=== PATIENT | female | born 1955 | race Caucasian/White ===

== ENCOUNTER 2018-10-10 14:30 | Inpatient (IN) | payer BC, OTHER ==
[~2018-10-10] VITALS: Ht 170.2 cm; Wt 93.5 kg
[2018-10-10 22:00] VITALS: BP 148/71
[2018-10-10] MEDS ORDERED: LORazepam 2MG/ML-1ML VIAL IV PRN (22:15)
[2018-10-10] MEDS ORDERED: LORazepam 0.5 MG TAB PO PRN (22:15)
[2018-10-10] MEDS: MORPHINE SULF INJ 2 MG/ML SYRINGE 1ML IV PRN (22:44)
[2018-10-10] MEDS: GABAPENTIN 300 MG CAP PO SCH (22:45)
[2018-10-10] MEDS: AMITRIPTYLINE HCL 25 MG TAB PO SCH (22:45)
[2018-10-10] MEDS: DOCUSATE SOD 100 MG CAP PO PRN (22:45)
[2018-10-10] MEDS: FAMOTIDINE 20 MG TAB PO SCH (22:45)
[2018-10-10] MEDS: PHENYTOIN SODIUM 100 MG CAP PO SCH (22:45)
[2018-10-11] MEDS: MORPHINE SULF INJ 2 MG/ML SYRINGE 1ML IV PRN ×5 (05:17→20:14)
[2018-10-11 06:03] VITALS: BP 157/69
[2018-10-11] MEDS: GABAPENTIN 300 MG CAP PO SCH ×3 (06:05→20:55)
[2018-10-11 06:39] LABS: Basophils # (auto) 0.1 uL; Basophils % (auto) 1.1 % (0.0-2.0); Eosinophils # (auto) 0.3 uL; Eosinophils % (auto) 3.4 % (0.0-7.0); Hematocrit 29.5 % (36.0-46.0); Lymphocytes # (auto) 2.3 uL; Lymphocytes % (auto) 23.2 % (10.0-50.0); Mean Corpuscular Hemoglobin 30.9 pg (28.0-32.0); Mean Corpuscular Volume 90.8 fL (80.0-100.0); Monocytes # (auto) 1.1 uL; Monocytes % (auto) 11.7 % (0.0-12.0); Neutrophils # (auto) 5.9 uL; Neutrophils % (auto) 60.6 % (37.0-80.0); Platelet Count (auto) 298 10^3/uL (140-450); Red Blood Cells 3.25 10^6/uL (4.0-5.20); Red Cell Distribution Width 13.6 % (11.8-14.3); White Blood Cell 9.8 10^3/uL (4.4-10.8)
[2018-10-11 06:56] LABS: Calcium 8.3 mg/dL (8.5-10.1); INR 0.95 (0.9-1.15); Partial Thromboplastin Time 27.3 sec (23.64-32.05); Potassium 3.3 mmol/L (3.5-5.1)
[2018-10-11 08:00] VITALS: BP 155/67
[2018-10-11 09:00] VITALS: BP 155/67
[2018-10-11] MEDS: FAMOTIDINE 20 MG TAB PO SCH ×2 (09:17→20:55)
[2018-10-11] MEDS: PHENYTOIN SODIUM 100 MG CAP PO SCH ×2 (10:01→20:55)
[2018-10-11] MEDS: HYDROcodone-ACET 5/325MG TAB PO PRN (12:32)
[2018-10-11 13:00] VITALS: BP 164/74
[2018-10-11] MEDS ORDERED: POTASSIUM CHL 20 Meq TABLET PO ONE (13:00)
[2018-10-11] MEDS: METHOCARBAMOL 500 MG TAB PO SCH ×2 (13:16→20:55)
[2018-10-11 16:49] VITALS: BP 158/75
[2018-10-11] MEDS: AMITRIPTYLINE HCL 25 MG TAB PO SCH (20:55)
[2018-10-11 21:30] VITALS: BP 153/77
[2018-10-11] MEDS: TEMAZEPAM 15 MG CAP PO PRN (23:41)
[2018-10-12 05:00] VITALS: BP 149/78
[2018-10-12] MEDS: MORPHINE SULF INJ 2 MG/ML SYRINGE 1ML IV PRN ×5 (05:13→20:41)
[2018-10-12] MEDS: METHOCARBAMOL 500 MG TAB PO SCH ×3 (06:25→22:08)
[2018-10-12] MEDS: GABAPENTIN 300 MG CAP PO SCH ×3 (06:25→22:09)
[2018-10-12 08:00] VITALS: BP 155/80
[2018-10-12] MEDS: PHENYTOIN SODIUM 100 MG CAP PO SCH ×2 (10:27→22:09)
[2018-10-12] MEDS: DOCUSATE SOD 100 MG CAP PO PRN (10:28)
[2018-10-12] MEDS: HYDROcodone-ACET 5/325MG TAB PO PRN ×2 (10:28→14:55)
[2018-10-12] MEDS: FAMOTIDINE 20 MG TAB PO SCH ×2 (10:28→22:09)
[2018-10-12 12:00] VITALS: BP 135/75
[2018-10-12 17:00] VITALS: BP 140/73
[2018-10-12 22:00] VITALS: BP 155/79
[2018-10-12] MEDS: AMITRIPTYLINE HCL 25 MG TAB PO SCH (22:08)
[2018-10-12] MEDS: TEMAZEPAM 15 MG CAP PO PRN (23:10)
[2018-10-13] MEDS: MORPHINE SULF INJ 2 MG/ML SYRINGE 1ML IV PRN ×5 (04:05→20:59)
[2018-10-13 05:00] VITALS: BP 156/74
[2018-10-13] MEDS ORDERED: CIPROFLOXACIN HCL 500 MG TAB PO SCH (06:00)
[2018-10-13] MEDS: GABAPENTIN 300 MG CAP PO SCH ×3 (06:07→22:34)
[2018-10-13] MEDS: METHOCARBAMOL 500 MG TAB PO SCH ×3 (06:08→22:34)
[2018-10-13 08:00] VITALS: BP 138/69
[2018-10-13] MEDS: FAMOTIDINE 20 MG TAB PO SCH ×2 (10:18→22:34)
[2018-10-13] MEDS: PHENYTOIN SODIUM 100 MG CAP PO SCH ×2 (10:18→22:34)
[2018-10-13] MEDS: HYDROcodone-ACET 5/325MG TAB PO PRN (10:19)
[2018-10-13 12:30] VITALS: BP 125/77
[2018-10-13 17:00] VITALS: BP 138/69
[2018-10-13] MEDS ORDERED: CIPROFLOXACIN HCL 500 MG TAB PO ONE (17:45)
[2018-10-13] MEDS ORDERED: BISACODYL 10 MG RECT SUPP PR ONE (18:30)
[2018-10-13] MEDS ORDERED: LACTULOSE 20Gm/30ML SOLN PO ONE (18:30)
[2018-10-13] MEDS: DOCUSATE SOD 100 MG CAP PO SCH (18:40)
[2018-10-13] MEDS: HYDROcodone-ACET 7.5/325MG TAB PO SCH (18:42)
[2018-10-13 19:00] LABS: Urine Bacteria MANY /hpf (None Seen); Urine Blood 3+ /uL (Negative); Urine Mucus FEW (None Seen); Urine Specific Gravity 1.024 (1.001-1.035); Urine WBC 99 /hpf (0 - 5)
[2018-10-13 22:00] VITALS: BP 122/78
[2018-10-13] MEDS: AMITRIPTYLINE HCL 25 MG TAB PO SCH (22:34)
[2018-10-14] MEDS: LACTULOSE 20Gm/30ML SOLN PO SCH ×4 (00:26→17:19)
[2018-10-14] MEDS: MORPHINE SULF INJ 2 MG/ML SYRINGE 1ML IV PRN ×5 (01:45→21:02)
[2018-10-14 05:10] VITALS: BP 142/85
[2018-10-14] MEDS: GABAPENTIN 300 MG CAP PO SCH ×3 (06:28→22:30)
[2018-10-14] MEDS: CIPROFLOXACIN HCL 500 MG TAB PO SCH ×2 (06:28→17:19)
[2018-10-14] MEDS: HYDROcodone-ACET 7.5/325MG TAB PO SCH ×4 (06:29→18:49)
[2018-10-14] MEDS: METHOCARBAMOL 500 MG TAB PO SCH ×3 (06:29→22:37)
[2018-10-14 09:00] VITALS: BP 159/76
[2018-10-14] MEDS: DOCUSATE SOD 100 MG CAP PO SCH ×2 (10:40→22:30)
[2018-10-14] MEDS: FAMOTIDINE 20 MG TAB PO SCH ×2 (10:40→22:30)
[2018-10-14] MEDS: PHENYTOIN SODIUM 100 MG CAP PO SCH ×2 (10:41→22:30)
[2018-10-14 13:00] VITALS: BP 136/74
[2018-10-14 17:00] VITALS: BP 148/73
[2018-10-14 22:00] VITALS: BP 142/63
[2018-10-14] MEDS: AMITRIPTYLINE HCL 25 MG TAB PO SCH (22:30)
[2018-10-14] MEDS: TEMAZEPAM 15 MG CAP PO PRN (22:37)
[2018-10-15] MEDS: HYDROcodone-ACET 7.5/325MG TAB PO SCH ×4 (00:05→18:06)
[2018-10-15 04:49] VITALS: BP 142/68
[2018-10-15] MEDS: MORPHINE SULF INJ 2 MG/ML SYRINGE 1ML IV PRN ×3 (05:13→20:52)
[2018-10-15 05:59] LABS: Basophils # (auto) 0.1 uL; Eosinophils # (auto) 0.4 uL; Eosinophils % (auto) 4.8 % (0.0-7.0); Hematocrit 32.5 % (36.0-46.0); Hemoglobin 11.2 g/dL (12.2-16.2); Lymphocytes % (auto) 13.5 % (10.0-50.0); Mean Corpuscular Hemoglobin 31.3 pg (28.0-32.0); Mean Corpuscular Hgb Conc. 34.6 g/dL (32.0-36.0); Mean Corpuscular Volume 90.6 fL (80.0-100.0); Monocytes # (auto) 1.2 uL; Neutrophils # (auto) 4.6 uL; Neutrophils % (auto) 63.7 % (37.0-80.0); Platelet Count (auto) 352 10^3/uL (140-450); Red Blood Cells 3.59 10^6/uL (4.0-5.20); Red Cell Distribution Width 13.9 % (11.8-14.3); White Blood Cell 7.3 10^3/uL (4.4-10.8)
[2018-10-15] MEDS: LACTULOSE 20Gm/30ML SOLN PO SCH ×4 (06:00→17:53)
[2018-10-15] MEDS: CIPROFLOXACIN HCL 500 MG TAB PO SCH ×2 (06:25→18:05)
[2018-10-15] MEDS: METHOCARBAMOL 500 MG TAB PO SCH ×3 (06:26→22:26)
[2018-10-15] MEDS: GABAPENTIN 300 MG CAP PO SCH ×3 (06:26→22:26)
[2018-10-15 09:15] VITALS: BP 126/59
[2018-10-15] MEDS: PHENYTOIN SODIUM 100 MG CAP PO SCH ×2 (10:15→22:26)
[2018-10-15] MEDS: FAMOTIDINE 20 MG TAB PO SCH ×2 (10:15→22:26)
[2018-10-15] MEDS: DOCUSATE SOD 100 MG CAP PO SCH ×2 (10:15→22:26)
[2018-10-15 12:30] VITALS: BP 148/77
[2018-10-15 17:19] VITALS: BP 120/67
[2018-10-15 22:00] VITALS: BP 132/65
[2018-10-15] MEDS: TEMAZEPAM 15 MG CAP PO PRN (22:26)
[2018-10-15] MEDS: AMITRIPTYLINE HCL 25 MG TAB PO SCH (22:26)
[2018-10-16] MEDS: HYDROcodone-ACET 7.5/325MG TAB PO SCH ×4 (00:26→18:04)
[2018-10-16 05:00] VITALS: BP 132/71
[2018-10-16] MEDS: LACTULOSE 20Gm/30ML SOLN PO SCH ×4 (06:00→18:04)
[2018-10-16] MEDS: CIPROFLOXACIN HCL 500 MG TAB PO SCH ×2 (06:13→18:04)
[2018-10-16] MEDS: GABAPENTIN 300 MG CAP PO SCH ×3 (06:13→22:34)
[2018-10-16] MEDS: METHOCARBAMOL 500 MG TAB PO SCH ×3 (06:14→22:34)
[2018-10-16 07:28] LABS: Calcium 8.4 mg/dL (8.5-10.1); Potassium 4.1 mmol/L (3.5-5.1)
[2018-10-16 07:30] LABS: BUN/Creatinine Ratio 24.5
[2018-10-16 09:00] VITALS: BP 126/61
[2018-10-16 09:35] LABS: Hematocrit 35.3 % (36.0-46.0); Hemoglobin 11.7 g/dL (12.2-16.2); Mean Corpuscular Hemoglobin 30.7 pg (28.0-32.0); Mean Corpuscular Hgb Conc. 33.1 g/dL (32.0-36.0); Mean Corpuscular Volume 92.7 fL (80.0-100.0); Platelet Count (auto) 368 10^3/uL (140-450); Red Blood Cells 3.81 10^6/uL (4.0-5.20); Red Cell Distribution Width 14.5 % (11.8-14.3)
[2018-10-16 09:38] LABS: Basophils % (manual) 0 (0.0-2.0); Blast Cells 0; Metamyelocytes % 0; Myelocytes % 0; Promyelocytes % 0; Reactive Lymphocytes 0
[2018-10-16] MEDS: FAMOTIDINE 20 MG TAB PO SCH ×2 (09:58→22:34)
[2018-10-16] MEDS: PHENYTOIN SODIUM 100 MG CAP PO SCH ×2 (09:58→22:34)
[2018-10-16] MEDS: DOCUSATE SOD 100 MG CAP PO SCH ×2 (09:58→22:00)
[2018-10-16] MEDS: MORPHINE SULF INJ 2 MG/ML SYRINGE 1ML IV PRN ×2 (09:59→20:29)
[2018-10-16 11:08] LABS: Band Neutrophils % (manual) 1; Eosinophils % (manual) 1 (0-7); Lymphocytes % (manual) 18 (10.0-50.0); Monocytes % (manual) 16 (0-12)
[2018-10-16 13:00] VITALS: BP 117/72
[2018-10-16 17:26] VITALS: BP 122/61
[2018-10-16 22:07] VITALS: BP 116/73
[2018-10-16] MEDS: AMITRIPTYLINE HCL 25 MG TAB PO SCH (22:34)
[2018-10-16] MEDS: TEMAZEPAM 15 MG CAP PO PRN (22:35)
[2018-10-17] MEDS: HYDROcodone-ACET 7.5/325MG TAB PO SCH ×3 (00:18→13:39)
[2018-10-17 05:00] VITALS: BP 124/62
[2018-10-17] MEDS: MORPHINE SULF INJ 2 MG/ML SYRINGE 1ML IV PRN ×3 (05:15→16:56)
[2018-10-17] MEDS: LACTULOSE 20Gm/30ML SOLN PO SCH ×3 (06:00→11:17)
[2018-10-17] MEDS: CIPROFLOXACIN HCL 500 MG TAB PO SCH ×2 (06:05→16:55)
[2018-10-17] MEDS: GABAPENTIN 300 MG CAP PO SCH ×3 (06:06→21:16)
[2018-10-17] MEDS: METHOCARBAMOL 500 MG TAB PO SCH ×3 (06:07→21:15)
[2018-10-17] MEDS: PHENYTOIN SODIUM 100 MG CAP PO SCH ×2 (08:43→21:15)
[2018-10-17] MEDS: DOCUSATE SOD 100 MG CAP PO SCH (08:43)
[2018-10-17] MEDS: FAMOTIDINE 20 MG TAB PO SCH (08:43)
[2018-10-17 09:00] VITALS: BP 109/69
[2018-10-17 13:00] VITALS: BP 149/77
[2018-10-17 17:00] VITALS: BP 128/66
[2018-10-17] MEDS: HYDROcodone-ACET 7.5/325MG TAB PO PRN (19:11)
[2018-10-17] MEDS: TEMAZEPAM 15 MG CAP PO PRN (21:16)
[2018-10-17] MEDS: AMITRIPTYLINE HCL 25 MG TAB PO SCH (21:16)
[2018-10-17 22:00] VITALS: BP 121/63
[2018-10-18] MEDS: MORPHINE SULF INJ 2 MG/ML SYRINGE 1ML IV PRN ×2 (01:24→11:10)
[2018-10-18 05:00] VITALS: BP 140/75
[2018-10-18] MEDS: CIPROFLOXACIN HCL 500 MG TAB PO SCH ×2 (06:00→17:50)
[2018-10-18] MEDS: GABAPENTIN 300 MG CAP PO SCH ×3 (06:00→21:34)
[2018-10-18] MEDS: HYDROcodone-ACET 7.5/325MG TAB PO PRN ×3 (06:01→20:35)
[2018-10-18] MEDS: METHOCARBAMOL 500 MG TAB PO SCH ×3 (06:01→21:39)
[2018-10-18 09:00] VITALS: BP 134/73
[2018-10-18] MEDS: PHENYTOIN SODIUM 100 MG CAP PO SCH ×2 (10:45→21:34)
[2018-10-18] MEDS: FAMOTIDINE 20 MG TAB PO SCH (10:46)
[2018-10-18 12:59] VITALS: BP 133/67
[2018-10-18 14:45] LABS: Urine Bacteria FEW /hpf (None Seen); Urine Blood 1+ /uL (Negative); Urine Specific Gravity 1.015 (1.001-1.035); Urine WBC 8 /hpf (0 - 5)
[2018-10-18 16:57] VITALS: BP 130/54
[2018-10-18] MEDS: AMITRIPTYLINE HCL 25 MG TAB PO SCH (21:34)
[2018-10-18] MEDS: TEMAZEPAM 15 MG CAP PO PRN (21:39)
[2018-10-18] MEDS: DOCUSATE SOD 100 MG CAP PO PRN (21:45)
[2018-10-18 22:00] VITALS: BP 119/60
[2018-10-19] MEDS: MORPHINE SULF INJ 2 MG/ML SYRINGE 1ML IV PRN (01:57)
[2018-10-19 04:38] VITALS: BP 123/70
[2018-10-19] MEDS: LORazepam 0.5 MG TAB PO PRN (05:19)
[2018-10-19] MEDS: GABAPENTIN 300 MG CAP PO SCH ×3 (05:30→22:16)
[2018-10-19] MEDS: CIPROFLOXACIN HCL 500 MG TAB PO SCH ×2 (05:30→17:48)
[2018-10-19] MEDS: ACETAMINOPHEN 325 MG TAB PO PRN (05:30)
[2018-10-19] MEDS: METHOCARBAMOL 500 MG TAB PO SCH ×3 (05:31→22:16)
[2018-10-19 09:00] VITALS: BP 121/63
[2018-10-19] MEDS ORDERED: LORazepam 2MG/ML-1ML VIAL IV PRN (11:00)
[2018-10-19] MEDS: DOCUSATE SOD 100 MG CAP PO PRN (11:08)
[2018-10-19] MEDS: FAMOTIDINE 20 MG TAB PO SCH (11:08)
[2018-10-19] MEDS: KETOROLAC TROMETH 15 mg/ml 1ML VL IV PRN ×2 (11:08→22:00)
[2018-10-19] MEDS: PHENYTOIN SODIUM 100 MG CAP PO SCH ×2 (11:08→22:14)
[2018-10-19] MEDS ORDERED: LACTULOSE 20Gm/30ML SOLN PO ONE (11:30)
[2018-10-19 12:51] VITALS: BP 119/63
[2018-10-19] MEDS: HYDROcodone-ACET 7.5/325MG TAB PO PRN (14:39)
[2018-10-19 17:00] VITALS: BP 119/59
[2018-10-19 22:00] VITALS: BP 118/62
[2018-10-19] MEDS: AMITRIPTYLINE HCL 25 MG TAB PO SCH (22:15)
[2018-10-19] MEDS: TEMAZEPAM 15 MG CAP PO PRN (22:30)
[2018-10-20] MEDS: KETOROLAC TROMETH 15 mg/ml 1ML VL IV PRN ×3 (03:56→20:12)
[2018-10-20] MEDS: METHOCARBAMOL 500 MG TAB PO SCH ×3 (06:42→23:01)
[2018-10-20] MEDS: LACTULOSE 20Gm/30ML SOLN PO PRN (06:42)
[2018-10-20] MEDS: GABAPENTIN 300 MG CAP PO SCH ×3 (06:42→23:01)
[2018-10-20] MEDS: CIPROFLOXACIN HCL 500 MG TAB PO SCH ×2 (06:43→17:37)
[2018-10-20 08:54] VITALS: BP 115/63
[2018-10-20] MEDS: PHENYTOIN SODIUM 100 MG CAP PO SCH ×2 (10:21→23:00)
[2018-10-20] MEDS: FAMOTIDINE 20 MG TAB PO SCH (10:22)
[2018-10-20 13:00] VITALS: BP 120/73
[2018-10-20 16:47] VITALS: BP 123/53
[2018-10-20] MEDS: DOCUSATE SOD 100 MG CAP PO PRN (17:40)
[2018-10-20] MEDS: HYDROcodone-ACET 7.5/325MG TAB PO PRN ×2 (17:41→23:08)
[2018-10-20 22:24] VITALS: BP 115/58
[2018-10-20] MEDS: AMITRIPTYLINE HCL 25 MG TAB PO SCH (23:00)
[2018-10-21] MEDS: TEMAZEPAM 15 MG CAP PO PRN ×2 (00:29→22:40)
[2018-10-21 05:22] VITALS: BP 112/56
[2018-10-21 06:06] LABS: Basophils # (auto) 0.1 uL; Basophils % (auto) 1.2 % (0.0-2.0); Eosinophils # (auto) 0.3 uL; Eosinophils % (auto) 4.3 % (0.0-7.0); Hematocrit 33.2 % (36.0-46.0); Hemoglobin 11.3 g/dL (12.2-16.2); Lymphocytes # (auto) 1.5 uL; Lymphocytes % (auto) 19.8 % (10.0-50.0); Mean Corpuscular Hemoglobin 30.8 pg (28.0-32.0); Mean Corpuscular Hgb Conc. 33.9 g/dL (32.0-36.0); Mean Corpuscular Volume 90.7 fL (80.0-100.0); Monocytes % (auto) 13.5 % (0.0-12.0); Neutrophils # (auto) 4.7 uL; Neutrophils % (auto) 61.2 % (37.0-80.0); Platelet Count (auto) 375 10^3/uL (140-450); Red Blood Cells 3.66 10^6/uL (4.0-5.20); Red Cell Distribution Width 14.6 % (11.8-14.3); White Blood Cell 7.7 10^3/uL (4.4-10.8)
[2018-10-21 06:34] LABS: Potassium 4.1 mmol/L (3.5-5.1)
[2018-10-21 06:41] LABS: BUN/Creatinine Ratio 27.3
[2018-10-21] MEDS: DOCUSATE SOD 100 MG CAP PO PRN (06:52)
[2018-10-21] MEDS: METHOCARBAMOL 500 MG TAB PO SCH ×3 (06:52→22:41)
[2018-10-21] MEDS: GABAPENTIN 300 MG CAP PO SCH ×3 (06:52→22:40)
[2018-10-21] MEDS: FAMOTIDINE 20 MG TAB PO SCH (08:33)
[2018-10-21] MEDS: KETOROLAC TROMETH 15 mg/ml 1ML VL IV PRN (08:35)
[2018-10-21] MEDS: PHENYTOIN SODIUM 100 MG CAP PO SCH ×2 (08:37→22:41)
[2018-10-21 08:54] VITALS: BP 112/58
[2018-10-21 13:00] VITALS: BP 106/61
[2018-10-21] MEDS: HYDROcodone-ACET 7.5/325MG TAB PO PRN ×2 (13:28→20:14)
[2018-10-21 16:56] VITALS: BP 103/51
[2018-10-21 22:39] VITALS: BP 112/55
[2018-10-21] MEDS: AMITRIPTYLINE HCL 25 MG TAB PO SCH (22:40)
[2018-10-22] MEDS: LORazepam 0.5 MG TAB PO PRN (03:17)
[2018-10-22 05:15] VITALS: BP 114/50
[2018-10-22 06:24] LABS: Basophils # (auto) 0.1 uL; Basophils % (auto) 1.2 % (0.0-2.0); Eosinophils # (auto) 0.3 uL; Eosinophils % (auto) 4.9 % (0.0-7.0); Hematocrit 34.4 % (36.0-46.0); Hemoglobin 11.5 g/dL (12.2-16.2); Lymphocytes # (auto) 1.4 uL; Mean Corpuscular Hemoglobin 31.1 pg (28.0-32.0); Mean Corpuscular Hgb Conc. 33.5 g/dL (32.0-36.0); Mean Corpuscular Volume 92.9 fL (80.0-100.0); Monocytes # (auto) 0.9 uL; Neutrophils # (auto) 4.1 uL; Neutrophils % (auto) 59.9 % (37.0-80.0); Platelet Count (auto) 430 10^3/uL (140-450); Red Blood Cells 3.71 10^6/uL (4.0-5.20); White Blood Cell 6.9 10^3/uL (4.4-10.8)
[2018-10-22 06:48] LABS: Albumin 2.4 g/dL (3.4-5.0); BUN/Creatinine Ratio 28.1; Calcium 9.1 mg/dL (8.5-10.1); Potassium 4.1 mmol/L (3.5-5.1)
[2018-10-22 06:51] LABS: Bilirubin, Total 0.4 mg/dL (0.2-1.0); Total Protein 6.4 g/dL (6.4-8.2)
[2018-10-22] MEDS: LACTULOSE 20Gm/30ML SOLN PO PRN (06:53)
[2018-10-22] MEDS: HYDROcodone-ACET 7.5/325MG TAB PO PRN ×2 (06:54→17:39)
[2018-10-22] MEDS: GABAPENTIN 300 MG CAP PO SCH ×3 (06:54→21:51)
[2018-10-22] MEDS: METHOCARBAMOL 500 MG TAB PO SCH ×3 (06:54→21:52)
[2018-10-22 08:00] VITALS: BP 123/63
[2018-10-22 09:12] VITALS: BP 123/63
[2018-10-22] MEDS: PHENYTOIN SODIUM 100 MG CAP PO SCH ×2 (11:05→21:51)
[2018-10-22] MEDS: FAMOTIDINE 20 MG TAB PO SCH (11:05)
[2018-10-22] MEDS: KETOROLAC TROMETH 15 mg/ml 1ML VL IV PRN ×2 (11:05→20:39)
[2018-10-22 13:00] VITALS: BP 117/57
[2018-10-22] MEDS ORDERED: MAGNESIUM CITRATE SOLUTION 300 ML BTL PO ONE (13:15)
[2018-10-22] MEDS: BISACODYL 5 MG EC TAB PO ONE ×2 (14:06→15:13)
[2018-10-22 17:03] VITALS: BP 113/55
[2018-10-22] MEDS: AMITRIPTYLINE HCL 25 MG TAB PO SCH (21:51)
[2018-10-22] MEDS: TEMAZEPAM 15 MG CAP PO PRN (21:52)
[2018-10-22 22:29] VITALS: BP 103/49
[2018-10-23] MEDS: HYDROcodone-ACET 7.5/325MG TAB PO PRN ×3 (01:40→19:20)
[2018-10-23] MEDS: METHOCARBAMOL 500 MG TAB PO SCH ×3 (05:43→21:57)
[2018-10-23] MEDS: GABAPENTIN 300 MG CAP PO SCH ×3 (05:43→21:57)
[2018-10-23 05:47] VITALS: BP 101/54
[2018-10-23 08:00] VITALS: BP 119/62
[2018-10-23 09:00] VITALS: BP 119/62
[2018-10-23] MEDS: FAMOTIDINE 20 MG TAB PO SCH (09:35)
[2018-10-23] MEDS: KETOROLAC TROMETH 15 mg/ml 1ML VL IV PRN (09:35)
[2018-10-23] MEDS: PHENYTOIN SODIUM 100 MG CAP PO SCH ×2 (09:35→21:56)
[2018-10-23 13:26] VITALS: BP 98/63
[2018-10-23 16:59] VITALS: BP 110/58
[2018-10-23] MEDS: BISACODYL 5 MG EC TAB PO PRN (19:06)
[2018-10-23] MEDS: AMITRIPTYLINE HCL 25 MG TAB PO SCH (21:56)
[2018-10-23] MEDS: TEMAZEPAM 15 MG CAP PO PRN (21:57)
[2018-10-23 21:58] VITALS: BP 110/57
[2018-10-24] MEDS: HYDROcodone-ACET 7.5/325MG TAB PO PRN ×3 (01:05→17:13)
[2018-10-24 05:38] VITALS: BP 108/55
[2018-10-24] MEDS: GABAPENTIN 300 MG CAP PO SCH ×3 (06:12→22:03)
[2018-10-24] MEDS: METHOCARBAMOL 500 MG TAB PO SCH ×3 (06:12→22:02)
[2018-10-24 09:00] VITALS: BP 102/61
[2018-10-24] MEDS ORDERED: LORazepam 2MG/ML-1ML VIAL IV ONE (09:45)
[2018-10-24] MEDS: PHENYTOIN SODIUM 100 MG CAP PO SCH (11:02)
[2018-10-24] MEDS: FAMOTIDINE 20 MG TAB PO SCH (11:03)
[2018-10-24] MEDS: BISACODYL 5 MG EC TAB PO PRN (11:03)
[2018-10-24 13:00] VITALS: BP 103/61
[2018-10-24] MEDS ORDERED: SODIUM CHLORIDE 0.9% 1,000 ML IV ONE (14:15)
[2018-10-24] MEDS: MORPHINE SULF INJ 2 MG/ML SYRINGE 1ML IV PRN ×2 (14:55→20:00)
[2018-10-24 17:00] VITALS: BP 105/51
[2018-10-24 22:00] VITALS: BP 109/52
[2018-10-24] MEDS: LACTULOSE 20Gm/30ML SOLN PO SCH (22:02)
[2018-10-24] MEDS: AMITRIPTYLINE HCL 25 MG TAB PO SCH (22:03)
[2018-10-24] MEDS: TEMAZEPAM 15 MG CAP PO PRN (22:03)
[2018-10-25] MEDS: HYDROcodone-ACET 7.5/325MG TAB PO PRN ×4 (04:24→21:33)
[2018-10-25] MEDS: GABAPENTIN 300 MG CAP PO SCH ×3 (05:06→21:33)
[2018-10-25] MEDS: METHOCARBAMOL 500 MG TAB PO SCH ×3 (05:06→21:33)
[2018-10-25 05:35] VITALS: BP 119/65
[2018-10-25 08:07] VITALS: BP 127/64
[2018-10-25] MEDS: LACTULOSE 20Gm/30ML SOLN PO SCH ×2 (10:00→21:34)
[2018-10-25] MEDS ORDERED: MORPHINE SULF INJ 2 MG/ML SYRINGE 1ML IV PRN (10:30)
[2018-10-25] MEDS ORDERED: LORazepam 0.5 MG TAB PO PRN (10:30)
[2018-10-25] MEDS: FAMOTIDINE 20 MG TAB PO SCH (10:45)
[2018-10-25 12:25] VITALS: BP 103/77
[2018-10-25 17:08] VITALS: BP 113/61
[2018-10-25 21:30] VITALS: BP 107/48
[2018-10-25] MEDS: TEMAZEPAM 15 MG CAP PO PRN (21:33)
[2018-10-25] MEDS: AMITRIPTYLINE HCL 25 MG TAB PO SCH (21:33)
[2018-10-26 04:44] VITALS: BP 109/76
[2018-10-26] MEDS: GABAPENTIN 300 MG CAP PO SCH ×3 (06:00→21:29)
[2018-10-26] MEDS: METHOCARBAMOL 500 MG TAB PO SCH ×3 (06:00→21:29)
[2018-10-26 09:10] VITALS: BP 113/57
[2018-10-26] MEDS: HYDROcodone-ACET 7.5/325MG TAB PO PRN ×2 (09:50→19:08)
[2018-10-26] MEDS: FAMOTIDINE 20 MG TAB PO SCH (09:51)
[2018-10-26] MEDS: PHENYTOIN SODIUM 100 MG CAP PO SCH (09:51)
[2018-10-26] MEDS: LACTULOSE 20Gm/30ML SOLN PO SCH ×2 (09:54→21:29)
[2018-10-26] MEDS ORDERED: LORazepam 2MG/ML-1ML VIAL IV PRN (11:00)
[2018-10-26 12:30] VITALS: BP 115/70
[2018-10-26] MEDS: SOD CHL 0.9%/ KCL 20MEQ 1,000 ML IV SCH (13:15)
[2018-10-26 17:15] VITALS: BP 111/55
[2018-10-26] MEDS: TEMAZEPAM 15 MG CAP PO PRN (21:29)
[2018-10-26] MEDS: AMITRIPTYLINE HCL 25 MG TAB PO SCH (21:29)
[2018-10-26 21:47] VITALS: BP 115/53
[2018-10-26] MEDS: ACETAMINOPHEN 325 MG TAB PO PRN (23:36)
[2018-10-27] MEDS: SOD CHL 0.9%/ KCL 20MEQ 1,000 ML IV SCH ×2 (03:40→20:20)
[2018-10-27 05:10] VITALS: BP 113/62
[2018-10-27] MEDS: GABAPENTIN 300 MG CAP PO SCH ×3 (05:42→21:49)
[2018-10-27] MEDS: METHOCARBAMOL 500 MG TAB PO SCH ×3 (05:42→21:49)
[2018-10-27] MEDS: PHENYTOIN SODIUM 100 MG CAP PO SCH (09:52)
[2018-10-27] MEDS: FAMOTIDINE 20 MG TAB PO SCH (09:52)
[2018-10-27] MEDS: HYDROcodone-ACET 7.5/325MG TAB PO PRN ×2 (09:52→20:32)
[2018-10-27] MEDS: LACTULOSE 20Gm/30ML SOLN PO SCH ×2 (09:53→21:49)
[2018-10-27] MEDS: IBUPROFEN 600 MG TAB PO PRN (16:50)
[2018-10-27 17:00] VITALS: BP 116/72
[2018-10-27 20:00] VITALS: BP 107/57
[2018-10-27 21:44] VITALS: BP 107/57
[2018-10-27] MEDS: TEMAZEPAM 15 MG CAP PO PRN (21:49)
[2018-10-27] MEDS: AMITRIPTYLINE HCL 25 MG TAB PO SCH (21:49)
[2018-10-28 04:56] VITALS: BP 116/60
[2018-10-28] MEDS: GABAPENTIN 300 MG CAP PO SCH ×3 (06:28→22:30)
[2018-10-28] MEDS: METHOCARBAMOL 500 MG TAB PO SCH ×3 (06:28→22:30)
[2018-10-28 08:00] VITALS: BP 116/61
[2018-10-28] MEDS: PHENYTOIN SODIUM 100 MG CAP PO SCH (09:34)
[2018-10-28] MEDS: FAMOTIDINE 20 MG TAB PO SCH (09:34)
[2018-10-28] MEDS: LACTULOSE 20Gm/30ML SOLN PO SCH ×2 (09:35→22:31)
[2018-10-28] MEDS: HYDROcodone-ACET 7.5/325MG TAB PO PRN ×2 (09:41→18:21)
[2018-10-28 12:00] VITALS: BP 101/51
[2018-10-28] MEDS: IBUPROFEN 600 MG TAB PO PRN ×2 (12:42→20:43)
[2018-10-28 16:59] VITALS: BP 106/65
[2018-10-28 21:41] VITALS: BP 110/69
[2018-10-28] MEDS: TEMAZEPAM 15 MG CAP PO PRN (22:30)
[2018-10-28] MEDS: AMITRIPTYLINE HCL 25 MG TAB PO SCH (22:31)
[2018-10-29 04:40] VITALS: BP 111/64
[2018-10-29] MEDS: HYDROcodone-ACET 7.5/325MG TAB PO PRN ×3 (04:57→20:34)
[2018-10-29] MEDS: GABAPENTIN 300 MG CAP PO SCH ×3 (06:20→22:12)
[2018-10-29] MEDS: METHOCARBAMOL 500 MG TAB PO SCH ×3 (06:20→22:13)
[2018-10-29 08:00] VITALS: BP 113/62
[2018-10-29] MEDS: LACTULOSE 20Gm/30ML SOLN PO SCH ×2 (10:07→22:12)
[2018-10-29] MEDS: MORPHINE SULF INJ 2 MG/ML SYRINGE 1ML IV PRN ×2 (10:07→17:42)
[2018-10-29] MEDS: PHENYTOIN SODIUM 100 MG CAP PO SCH (10:07)
[2018-10-29] MEDS: FAMOTIDINE 20 MG TAB PO SCH (10:07)
[2018-10-29 12:00] VITALS: BP 112/66
[2018-10-29 17:00] VITALS: BP 148/64
[2018-10-29 22:00] VITALS: BP 101/57
[2018-10-29] MEDS: TEMAZEPAM 15 MG CAP PO PRN (22:13)
[2018-10-29] MEDS: AMITRIPTYLINE HCL 25 MG TAB PO SCH (22:13)
[2018-10-30] MEDS: HYDROcodone-ACET 7.5/325MG TAB PO PRN ×2 (04:57→12:52)
[2018-10-30 05:00] VITALS: BP 114/56
[2018-10-30] MEDS: METHOCARBAMOL 500 MG TAB PO SCH ×2 (06:25→12:52)
[2018-10-30] MEDS: GABAPENTIN 300 MG CAP PO SCH ×2 (06:25→12:51)
[2018-10-30 08:00] VITALS: BP 110/57
[2018-10-30] MEDS: FAMOTIDINE 20 MG TAB PO SCH (09:23)
[2018-10-30] MEDS: PHENYTOIN SODIUM 100 MG CAP PO SCH (09:24)
[2018-10-30] MEDS: LACTULOSE 20Gm/30ML SOLN PO SCH (09:24)
[2018-10-30] MEDS: MORPHINE SULF INJ 2 MG/ML SYRINGE 1ML IV PRN (10:19)
[2018-10-30 12:00] VITALS: BP 105/60
[2018-10-30] MEDS ORDERED: PHE100C PO (13:14)
[2018-10-30] MEDS ORDERED: FAM20T PO (13:14)
[2018-10-30] MEDS ORDERED: LACT10SO3 PO (13:14)
[2018-10-30] MEDS ORDERED: IBU600T PO (13:14)
[2018-10-30] MEDS ORDERED: GABA300C10 PO (13:14)
[2018-10-30] MEDS ORDERED: METH500T6 PO (13:14)
[2018-10-30] MEDS ORDERED: AMI25T PO (13:14)
== END 2018-10-30 15:20 | DRG 65 ==
LOC: WEST WING 21:30
PROVIDERS: ADMIT Nurse Practitioner Acute Care; ATTEND Internal Medicine
DX: I60.9 Nontraumatic subarachnoid hemorrhage, unspecified (principal); E87.1 Hypo-osmolality and hyponatremia; M48.54XA Collapsed vertebra, not elsewhere classified, thoracic region, initial encounter for fracture; N39.0 Urinary tract infection, site not specified; B96.20 Unspecified Escherichia coli [E. coli] as the cause of diseases classified elsewhere; F41.9 Anxiety disorder, unspecified; I10 Essential (primary) hypertension; M48.04 Spinal stenosis, thoracic region; R56.9 Unspecified convulsions; H35.60 Retinal hemorrhage, unspecified eye
CPT/HCPCS: 36415; 70450; 70486; 72070; 72128; 73100; 73110; 80048; 80053; 81001; 84132; 85007; 85025; 85027; 85610; 85730; 87081; 87086; 87088; 87186; 95819; 97110; 97116; 97163; 97530; G0378

== ENCOUNTER 2023-07-15 20:03 | Inpatient (IN) | payer OTHER, MEDICAID ==
[~2023-07-15] VITALS: Ht 165.1 cm; Wt 79.0 kg
[~2023-07-15 20:03] MED LIST: AMIT-118 PO; FAMO20TA10 PO; GABA-1250 PO; IBUP1TAB5 PO; LACT10SO3 PO; METH-1181 PO; PHEN1CAP60 PO
[2023-07-15 20:45] LABS: Basophils # (auto) 0.1 10 ^3/uL (0-0.2); Eosinophils # (auto) 0.2 10 ^3/uL (0-0.8); Eosinophils % (auto) 1.9 % (0.0-7.0); Hematocrit 36.8 % (36.0-46.0); Hemoglobin 12.1 g/dL (12.2-16.2); Lymphocytes # (auto) 3.2 10 ^3/uL (0.4-5.4); Lymphocytes % (auto) 39.1 % (10.0-50.0); Mean Corpuscular Hemoglobin 30.9 pg (28.0-32.0); Mean Corpuscular Hgb Conc. 32.8 g/dL (32.0-36.0); Monocytes # (auto) 1.1 10 ^3/uL (0-1.3); Monocytes % (auto) 13.4 % (0.0-12.0); Neutrophils # (auto) 3.6 10 ^3/uL (1.6-8.6); Neutrophils % (auto) 44.6 % (37.0-80.0); Red Blood Cells 3.92 10^6/uL (4.0-5.20); Red Cell Distribution Width 12.7 % (11.8-14.3); White Blood Cell 8.1 10^3/uL (4.4-10.8)
[2023-07-15 21:01] LABS: Alanine Aminotransferase 13 U/L (7-40); Alkaline Phosphatase 91 U/L (46-116); Anion Gap 7 (5-15); Aspartate Aminotransferase 16 U/L (13-40); BUN/Creatinine Ratio 13.7 (10.0-20.0); Bilirubin, Total 0.4 mg/dL (0.2-1.0); Blood Urea Nitrogen 13 mg/dL (9-23); Carbon Dioxide 21 mmol/L (20-30); Chloride 111 mmol/L (98-107); Glucose 100 mg/dL (74-106); INR 0.92 (0.9-1.15); Magnesium 2.2 mg/dL (1.6-2.6); Partial Thromboplastin Time 24.8 SEC (24.5-34.5); Potassium 4.2 mmol/L (3.5-5.1); Prothrombin Time 9.8 sec (9.3-11.8); Sodium 139 mmol/L (136-145); Total Protein 6.2 g/dL (5.7-8.2)
[2023-07-15 23:00] VITALS: PULSE 78; RESP 23; O2SAT 96
[2023-07-16] MEDS: ONDANSETRON HCL 4 MG/2 ML VIAL IV ONE (00:12)
[2023-07-16] MEDS: MORPHINE SULFATE 4 MG/ML SYR/VIAL IV ONE (00:13)
[2023-07-16] MEDS: IOHEXOL 350 MG/ML 100ML IJ ONE (00:14)
[2023-07-16] MEDS: HYDROmorphone HCL 2 MG/ML VL/or syr IV ONE (01:23)
[2023-07-16 02:33] LABS: Urine Bacteria FEW /hpf (None Seen); Urine Blood Negative /uL (Negative); Urine Clarity Turbid (Clear); Urine Color Straw (Yellow); Urine Mucus FEW (None Seen); Urine Protein, UAD Negative (Negative); Urine Specific Gravity 1.043 (1.001-1.035); Urine Urobilinogen Normal (Negative); Urine WBC 6 /hpf (0 - 5); Urine pH 6.5 (5.0-9.0)
[2023-07-16] MEDS ORDERED: MORPHINE SULFATE INJ 2 MG/ml SYRG IV PRN (03:00)
[2023-07-16] MEDS: SODIUM CHLORIDE 0.9% 1,000 ML IV SCH (03:21)
[2023-07-16 06:08] LABS: Basophils # (auto) 0.1 10 ^3/uL (0-0.2); Basophils % (auto) 0.8 % (0.0-2.0); Eosinophils # (auto) 0.2 10 ^3/uL (0-0.8); Eosinophils % (auto) 1.9 % (0.0-7.0); Hematocrit 35.5 % (36.0-46.0); Hemoglobin 11.6 g/dL (12.2-16.2); Lymphocytes # (auto) 2.6 10 ^3/uL (0.4-5.4); Lymphocytes % (auto) 31.9 % (10.0-50.0); Mean Corpuscular Hemoglobin 30.9 pg (28.0-32.0); Mean Corpuscular Hgb Conc. 32.6 g/dL (32.0-36.0); Mean Corpuscular Volume 94.7 fL (80.0-100.0); Monocytes # (auto) 1.1 10 ^3/uL (0-1.3); Monocytes % (auto) 13.4 % (0.0-12.0); Neutrophils # (auto) 4.2 10 ^3/uL (1.6-8.6); Nucleated Red Blood Cells % 0.1 %; Red Blood Cells 3.75 10^6/uL (4.0-5.20); Red Cell Distribution Width 12.9 % (11.8-14.3); White Blood Cell 8.1 10^3/uL (4.4-10.8)
[2023-07-16 06:10] LABS: Albumin 3.6 g/dL (3.2-4.8); Alkaline Phosphatase 89 U/L (46-116); Anion Gap 3 (5-15); Aspartate Aminotransferase 32 U/L (13-40); BUN/Creatinine Ratio 12.1 (10.0-20.0); Bilirubin, Total 0.5 mg/dL (0.2-1.0); Blood Urea Nitrogen 11 mg/dL (9-23); Calcium 9.9 mg/dL (8.7-10.4); Carbon Dioxide 25 mmol/L (20-30); Chloride 112 mmol/L (98-107); Glucose 99 mg/dL (74-106); Potassium 4.9 mmol/L (3.5-5.1); Sodium 140 mmol/L (136-145); Total Protein 5.6 g/dL (5.7-8.2)
[2023-07-16] MEDS: GABAPENTIN 300 MG CAP PO SCH (06:10)
[2023-07-16 06:17] LABS: Alanine Aminotransferase 17 U/L (7-40)
[2023-07-16 07:30] VITALS: PULSE 79; RESP 17; O2SAT 95
[2023-07-16] MEDS: FAMOTIDINE (10MG/ML) 2ML VL IV SCH (09:32)
[2023-07-16] MEDS: IBUPROFEN 600 MG TAB PO PRN (09:33)
[2023-07-16] MEDS: ASPirin 81 mg TAB PO SCH (09:33)
[2023-07-16] MEDS: HYDROmorphone HCL 2 MG/ML VL/or syr IV PRN (12:51)
[2023-07-16] MEDS: ONDANSETRON HCL 4 MG/2 ML VIAL IV PRN (12:52)
[2023-07-16 18:30] VITALS: PULSE 84; RESP 16; O2SAT 99
[2023-07-16 18:44] LABS: Triglycerides 95 mg/dL (< 150)
[2023-07-16 18:45] LABS: LDL Cholesterol 110 mg/dL (< 100)
[2023-07-16 18:46] LABS: Cholesterol 181 mg/dL (< 200); HDL Cholesterol 56 mg/dL (40-59)
[2023-07-16] MEDS: HYDROcodone-ACET 5/325MG TAB PO PRN (18:57)
[2023-07-16 20:00] VITALS: PULSE 79; PULSE 95
[2023-07-16] MEDS: NITROGLYCERIN 0.4 MG SL TAB SL PRN (20:24)
[2023-07-16] MEDS: KETOROLAC TROMETH 30 MG/ML 1ML VIAL IV ONE (21:25)
[2023-07-16 21:34] VITALS: BP 90/56; PULSE 74; RESP 17; TEMP 98; O2SAT 96
[2023-07-16 21:48] LABS: Urine Bacteria None Seen /hpf (None Seen)
[2023-07-16] MEDS ORDERED: TOPI25TA84 PO (21:52)
[2023-07-16] MEDS ORDERED: RIZA10TA22 PO (21:52)
[2023-07-16] MEDS ORDERED: PROP1TAB53 PO (21:52)
[2023-07-16] MEDS ORDERED: HYDR-4902 (21:52)
[2023-07-16 22:22] LABS: Urine Blood Negative /uL (Negative); Urine Clarity Turbid (Clear); Urine Color Yellow (Yellow); Urine Protein, UAD Negative (Negative); Urine Specific Gravity 1.042 (1.001-1.035); Urine Urobilinogen Normal (Negative); Urine WBC 17 /hpf (0 - 5); Urine pH 5.5 (5.0-9.0)
[2023-07-16 22:29] LABS: Amphetamine Screen, Urine Neg (NEGATIVE); Barbiturate Scree,Urine Neg (NEGATIVE); Benzodiazephine Screen, Urine Neg (NEGATIVE); Cannabinoid Screen, Urine Neg (NEGATIVE); Cocaine Screen, Urine Neg (NEGATIVE); Opiate Scree,Urine Pos (NEGATIVE); Phencyclidine Screen, Urine Neg (NEGATIVE)
[2023-07-17] VITALS (8 sets, daily range): BP systolic 104–149; BP diastolic 63–84; PULSE 74–91; RESP 17–20; TEMP 36.9; O2SAT 96–99
[2023-07-17] MEDS ORDERED: PNEUMOCOCCAL VACC POLYS 25 MCG/0.5 ML VIAL IM ONE (01:15)
[2023-07-17 06:09] LABS: Basophils # (auto) 0.1 10 ^3/uL (0-0.2); Basophils % (auto) 1.1 % (0.0-2.0); Eosinophils # (auto) 0.1 10 ^3/uL (0-0.8); Eosinophils % (auto) 2.3 % (0.0-7.0); Hematocrit 36.2 % (36.0-46.0); Hemoglobin 11.9 g/dL (12.2-16.2); Lymphocytes # (auto) 1.9 10 ^3/uL (0.4-5.4); Lymphocytes % (auto) 31.6 % (10.0-50.0); Mean Corpuscular Hgb Conc. 32.8 g/dL (32.0-36.0); Mean Corpuscular Volume 94.5 fL (80.0-100.0); Monocytes # (auto) 0.7 10 ^3/uL (0-1.3); Monocytes % (auto) 12.2 % (0.0-12.0); Neutrophils # (auto) 3.1 10 ^3/uL (1.6-8.6); Neutrophils % (auto) 52.8 % (37.0-80.0); Nucleated Red Blood Cells % 0.2 %; Red Blood Cells 3.83 10^6/uL (4.0-5.20); Red Cell Distribution Width 12.9 % (11.8-14.3)
[2023-07-17 06:27] LABS: Alanine Aminotransferase 44 U/L (7-40); Albumin 3.3 g/dL (3.2-4.8); Alkaline Phosphatase 102 U/L (46-116); Anion Gap 6 (5-15); Aspartate Aminotransferase 52 U/L (13-40); BUN/Creatinine Ratio 8.9 (10.0-20.0); Bilirubin, Total 0.8 mg/dL (0.2-1.0); Blood Urea Nitrogen 7 mg/dL (9-23); Calcium 9.2 mg/dL (8.7-10.4); Carbon Dioxide 23 mmol/L (20-30); Chloride 109 mmol/L (98-107); Glucose 86 mg/dL (74-106); Potassium 3.9 mmol/L (3.5-5.1); Sodium 138 mmol/L (136-145); Total Protein 5.4 g/dL (5.7-8.2)
[2023-07-17] MEDS: KETOROLAC TROMETH 30 MG/ML 1ML VIAL IV PRN (09:33)
[2023-07-17] MEDS ORDERED: ACETAMINOPHEN 325 MG TAB PO PRN (14:00)
[2023-07-17] MEDS: DOCUSATE SOD 100 MG CAP PO PRN (22:08)
[2023-07-18 01:00] VITALS: BP 141/63; PULSE 71; RESP 18; TEMP 98.2; O2SAT 97
[2023-07-18 05:00] VITALS: BP 128/69; PULSE 73; RESP 18; TEMP 98.2; O2SAT 97
[2023-07-18 06:26] LABS: Basophils # (auto) 0.1 10 ^3/uL (0-0.2); Basophils % (auto) 1.1 % (0.0-2.0); Eosinophils # (auto) 0.2 10 ^3/uL (0-0.8); Eosinophils % (auto) 2.9 % (0.0-7.0); Hematocrit 37.4 % (36.0-46.0); Hemoglobin 12.3 g/dL (12.2-16.2); Lymphocytes # (auto) 2.4 10 ^3/uL (0.4-5.4); Lymphocytes % (auto) 35.9 % (10.0-50.0); Mean Corpuscular Hemoglobin 30.9 pg (28.0-32.0); Mean Corpuscular Hgb Conc. 32.8 g/dL (32.0-36.0); Mean Corpuscular Volume 94.2 fL (80.0-100.0); Monocytes # (auto) 0.8 10 ^3/uL (0-1.3); Monocytes % (auto) 12.8 % (0.0-12.0); Neutrophils # (auto) 3.1 10 ^3/uL (1.6-8.6); Neutrophils % (auto) 47.3 % (37.0-80.0); Red Blood Cells 3.97 10^6/uL (4.0-5.20); Red Cell Distribution Width 12.6 % (11.8-14.3); White Blood Cell 6.6 10^3/uL (4.4-10.8)
[2023-07-18 06:37] LABS: Chloride 109 mmol/L (98-107); Potassium 4.2 mmol/L (3.5-5.1); Sodium 138 mmol/L (136-145)
[2023-07-18 06:38] LABS: Anion Gap 3 (5-15); Carbon Dioxide 26 mmol/L (20-30)
[2023-07-18 06:39] LABS: Calcium 9.8 mg/dL (8.7-10.4)
[2023-07-18 06:43] LABS: Glucose 87 mg/dL (74-106)
[2023-07-18 06:44] LABS: BUN/Creatinine Ratio 10.8 (10.0-20.0); Blood Urea Nitrogen 8 mg/dL (9-23)
[2023-07-18 08:00] VITALS: BP 139/79; PULSE 72; PULSE 80; RESP 16; TEMP 98
[2023-07-18 08:51] VITALS: BP 139/79; PULSE 81; RESP 81; TEMP 98; O2SAT 95
[2023-07-18 11:52] VITALS: BP 121/64; PULSE 75; RESP 19; TEMP 97.8; O2SAT 94
[2023-07-18] MEDS ORDERED: GABA-1250 PO (13:25)
[2023-07-18 14:05] VITALS: BP 112/63
== END 2023-07-18 15:30 | disposition home or self-care (01) | DRG 205 ==
LOC: ER 20:03 → EDSEX 20:03 → EDBD 20:03 → TELE 07-16 03:01 → TELE-WESTW 07-16 18:19
PROVIDERS: ADMIT Internal Medicine; ATTEND Family Medicine
DX: M94.0 Chondrocostal junction syndrome [Tietze] (principal); N17.0 Acute kidney failure with tubular necrosis; M48.54XA Collapsed vertebra, not elsewhere classified, thoracic region, initial encounter for fracture; G89.4 Chronic pain syndrome; R26.81 Unsteadiness on feet; M54.9 Dorsalgia, unspecified; Z79.1 Long term (current) use of non-steroidal anti-inflammatories (NSAID); Z79.899 Other long term (current) drug therapy; Z82.49 Family history of ischemic heart disease and other diseases of the circulatory system; Z87.19 Personal history of other diseases of the digestive system
CPT/HCPCS: 36415; 70450; 71045; 80048; 80053; 80061; 80307; 81001; 83036; 83735; 83880; 84443; 84484; 85025; 85610; 85730; 87086; 87088; 87186; 93005; 93306; G0378; J1885; J2405; J3490

== ENCOUNTER 2025-02-02 07:05 | Emergency (ER) | payer MEDICARE, MEDICAID ==
[~2025-02-02] VITALS: Ht 165.1 cm; Wt 70.0 kg
[~2025-02-02 07:05] MED LIST changes: +HYDR-4902; -LACT10SO3 PO; -PHEN1CAP60 PO; +PROP1TAB53 PO; +RIZA10TA22 PO; +TOPI25TA84 PO
--- NOTE | 2025-02-02 08:03 | ED.PDOC ---
Taniya. trauma (HPI) HPI Comments 69 y/o F, VICENTA, presents to the ED for CC of s/p fall injury. Patient reports, she had a trip and fall off of x3 stairs this morning (02/02/25) and is now experiencing left-ankle pain as a result. Patient has notable bilateral forearm abrasions. Patient denies headache, dizziness, loss of consciousness, nausea, or vomiting. No other symptoms or modifying factors are present at this time. Chief Complaint: Lower Extremity Time Seen by MD: 08:00 Primary Care Provider: DENIES Reviewed notes: Nurses Notes, Platform Supervisor Notes, Medications, Allergies Allergies: Coded Allergies: NO KNOWN ALLERGIES (Unverified , 03/07/13) Home Meds Active Scripts Diclofenac Potassium (Diclofenac Potassium) 50 Mg Tab, 1 TAB PO TIDP for 10 Days, #30 TAB Prov:VASHTI COLVIN MD 02/02/25 Cefdinir (Cefdinir) 300 Mg Cap, 1 CAP PO BID for 7 Days, #14 CAP Prov:VASHTI COLVIN MD 02/02/25 Gabapentin (Gabapentin) 300 Mg Cap, 1 CAP PO TID, #90 CAP 5 Refills Prov:ANUJ ROSA MD 07/18/23 Methocarbamol (Methocarbamol) 500 Mg Tab, 500 MG PO Q8HR for 30 Days, #90 TAB Prov:FAINA KEY MD 10/30/18 Ibuprofen Micronized (Ibuprofen) 600 Mg Tab, 600 MG PO Q8HP PRN for 90 Days, #270 TAB Prov:FAINA KEY MD 10/30/18 Gabapentin (Gabapentin) 300 Mg Cap, 300 MG PO TID for 30 Days, CAP Prov:FAINA KEY MD 10/30/18 Famotidine (PEPCID TABLET) 20 Mg Tb, 20 MG PO DAILY for 30 Days Prov:FAINA KEY MD 10/30/18 Amitriptyline HCl (Amitriptyline HCl) 25 Mg Tab, 25 MG PO HS for 30 Days, #30 TAB Prov:FAINA KEY MD 10/30/18 Reported Medications Hydrocodone-Acetaminophen (Hydrocodone Bitartrate/AC 5-325 mg) 1 Tab Tab 07/16/23 Propranolol HCl (Propranolol Hydrochloride) 20 Mg Tab, 1 TAB PO BID 07/16/23 Rizatriptan Benzoate (RIZATRIPTAN BENZOATE) 10 Mg Tab, 1 TAB PO DAILY 07/16/23 Topiramate (Topiramate) 25 Mg Tab, 1 TAB PO BID 07/16/23 Information Source: Patient Mode of Arrival: Ambulatory Severity: Moderate Timing: Hours Duration: Since onset Prehospital treatment: None Location: (L) Forearm, (R) Forearm Location of laceration: None Mechanism: Fall Associated signs and symtoms: None Past Medical History PAST MEDICAL HISTORY: Unknown Surgical History: Appendectomy, Unknown QUARTZ MINER History: No Pertinent QUARTZ MINER History Family History Family History: Unknown Social History Smoker: Non-Smoker Alcohol: Denies ETOH Use Drugs: Denies Drug Use Lives In: Home Constitutional: denies: chills, diaphoresis, fatigue, fever, malaise, sweats, weakness, others EENTM: denies: blurred vision, double vision, ear bleeding, ear discharge, ear drainage, ear pain, ear ringing, eye pain, eye redness, hearing loss, mouth pain, mouth swelling, nasal discharge, nose bleeding, nose congestion, nose pain, photophobia, tearing, throat pain, throat swelling, voice changes, others Respiratory: denies: cough, hemoptysis, orthopnea, SOB at rest, shortness of breath, SOB with excertion, stridor, wheezing, others Cardiovascular: denies: chest pain, dizzy spells, diaphoresis, Dyspnea on exertion, edema, irregular heart beat, left arm pain, lightheadedness, palpitations, PND, syncope, others Gastrointestinal: denies: abdomen distended, abdominal pain, blood streaked bowels, constipated, diarrhea, dysphagia, difficulty swallowing, hematemesis, melena, nausea, poor appetite, poor fluid intake, rectal bleeding, rectal pain, vomiting, others Genitourinary: denies: abnormal vagina bleeding, burning, dyspareunia, dysuria, flank pain, frequency, hematuria, incontinence, pain, , vagina discharge, urgency, others Neurological: denies: dizziness, fainting, headache, left sided numbness, left sided weakness, numbness, paresthesia, pre-existing deficit, right sided numbness, right sided weakness, seizure, speech problems, tingling, tremors, we akness, others Musculoskeletal: reports: others (left-ankle pain); denies: back pain, gout, joint pain, joint swelling, muscle pain, muscle stiffness, neck pain Integumetry: reports: others (bilateral forearm abrasions); denies: bruises, change in color, change in hair/nails, dryness, laceration, lesions, lumps, rash, wounds Allergic/Immunocompromised: denies: Difficulty Healing, Frequent Infections, Hives, Itching, others Hematologic/Lymphatic: denies: anemia, blood clots, easy bleeding, easy bruising, swollen glands, others Endocrine: denies: excessive hunger, excessive sweating, excessive thirst, excessive urination, flushing, intolerance to cold, intolerance to heat, unexplained weight gain, unexplained weight loss, others Psychiatric: denies: anxiety, bipolar disorder, depression, hopeless, panic disorder, schizophrenia, sleepless, suicidal, others All Other Systems: Reviewed and Negative Physical Exam General Appearance: Mild Distress HEENT: Normal ENT Inspection, PERRL/EOMI Neck: Full Range of Motion, Non-Tender, Normal, Normal Inspection Respiratory: Chest Non-Tender, Lungs Clear, No Accessory Muscle Use, No Respiratory Distress, Normal Breath Sounds Cardiovascular: No Edema, No JVD, No Murmur, No Gallop, Normal Peripheral Pulses, Regular Rate/Rhythm Breast Exam: Deferred Gastrointestinal: No Organomegaly, Non Tender, No Pulsatile Mass, Normal Bowel Sounds, Soft Genitalia: Deferred Pelvic: Deferred Rectal: Deferred Extremities: No calf tenderness, Normal capillary refill, Normal inspection, Normal range of motion, Non-tender, No pedal edema, Other (Skin avulsion both arms from falling) Musculoskeletal : Location: Left Extremity Location: Ankle Apperance: Swelling, Limited ROM, Tenderness: Moderate Neurologic: Alert, hse advisor II-XII nml as Tested, No Motor Deficits, Normal Affect, Normal Mood, No Sensory Deficits Cerebellar Function: Normal Reflexes: Normal Skin: Dry, Normal Color, Warm, Other (Portions to both elbows) Lymphatic: No Adenopathy Was a procedure done? Was a procedure done?: Yes Sedation Sedation?: No Other Procedure Procedure Debridement the skin avulsion to both forearms lateral aspect Indication Road abrasion Anesthetic none Prep Cleaned with alcohol Success Application of Neosporin ointment and dressing both arms Informed consent obtained: No Risks, benefits, and alternati: No Differential Diagnosis Multiple Trauma: Fractures, Abrasions Neck Injury: N/A X-Ray, Labs, Meds, VS Vital Signs Date Time Temp Pulse Resp B/P (MAP) Pulse Ox O2 Delivery O2 Flow Rate FiO2 02/02/25 10:25 84 18 99 Room Air 02/02/25 10:11 98.0 84 18 115/78 (90) 99 98.0 02/02/25 07:16 97.5 86 18 146/91 98 97.5 Current Medications Medications (Trade) Dose Ordered Sig/Abdon Route Start Time Stop Time Status Last Admin Neomycin/ Polymyxin/ Bacitracin (Triple Antibiotic) 4 applic ONCE ONCE TOP 02/02/25 08:00 02/02/25 08:01 DC 02/02/25 08:11 Acetaminophen/ Hydrocodone Bitart ([place] 5/325MG Tab) 1 tab ONCE ONCE PO 02/02/25 09:15 02/02/25 09:16 DC 02/02/25 09:23 [place] [id number] Ph: [phone] DIAGNOSTIC IMAGING Diagnostic Imaging Report : [id number] Signed PATIENT: BRENDA STERN ACCT: [id number] UNIT: [id number] : 1955 LOC: ER ROOM / BED: / AGE / SEX: 69 / F ADM STATUS: REG ER SERVICE 7 ORDERING PHYSICIAN: VASHTI COLVIN MD PROCEDURE(s): LANKL - L ANKLE 3 VIEW REASON: fall ORDER NUMBER(s): [id number], ACCESSION NUMBER(s): [id number] CLINICAL INDICATION: fall, pain TECHNIQUE: XY L ANKLE 3 VIEW Comparison: None FINDINGS/IMPRESSION: : There is no evidence of acute fracture or dislocation. Soft tissue swelling along the lateral ankle ATED BY: GM RICK MD DICTATED DATE/TIME: 02/02/25905 SIGNED BY: GM RICK MD SIGNED DATE/TIME: 02/02/25905 CC: X-Ray, Labs, Meds, VS Comment Course in the [employer] eventful patient came in because of a fall and twisted the left ankle also has a skin tears to both arms X-ray to the right ankle some soft tissue swelling no fracture Patient will be discharged home with an [place] wrap Time of 1ST Reevaluation: 08:30 Reevaluation 1ST: Unchanged Time of 2ND Reevaluation: 10:00 Reevaluation 2ND: Unchanged Consultation: PCP Patient Education/Counseling: Diagnosis, Treatment, Prognosis, Need For Follow Up Family Education/Counseling: Diagnosis, Treatment, Prognosis, Need For Follow Up, No Family Present Departure 1 Departure Time of Disposition: 17:45 Impression: Primary Impression: Left ankle sprain Qualified Codes: S93.422A - Sprain of deltoid ligament of left ankle, initial encounter Additional Impression: Avulsion of skin of elbow Qualified Codes: S51.009A - Unspecified open wound of unspecified elbow, initial encounter Disposition: HOME / SELF CARE / HOMELESS Condition: Fair Additional Instructions: Clean and dry apply Neosporin ointment and dressing until it heals e-Prescriptions Diclofenac Potassium (Diclofenac Potassium) 50 Mg Tab 1 TAB PO TIDP for 10 Days, #30 TAB Prov: VASHTI COLVIN MD 02/02/25 Cefdinir (Cefdinir) 300 Mg Cap 1 CAP PO BID for 7 Days, #14 CAP Prov: VASHTI COLVIN MD 02/02/25 Discharged With: Self Critical Care Note Critical Care Time?: No Stability Stability form required: No Heart Score Heart Score: Heart Score Response (Comments) Value History N/A 0 EKG N/A 0 Age >65 2 Risk Factors 1 or 2 risk factors 1 Troponin N/A 0 Total 3 I personally scribed for VASHTI COLVIN MD ([email or web address]) on 02/02/25 at 08:03. Electronically submitted by Janny Lemos ([email or web address]). I personally scribed for VASHTI COLVIN MD ([email or web address]) on 02/02/25 at 09:47. Electronically submitted by Janny Lemos ([email or web address]). VASHTI COLVIN MD Feb 02, 2025 08:03
[2025-02-02] MEDS: NEOMYCIN-BACITRACIN-POLYM UNITDOSE PKG TOP OINT TOP ONE (08:11)
--- NOTE | 2025-02-02 09:09 | DVH ---
CLINICAL INDICATION: fall, pain TECHNIQUE: XY L ANKLE 3 VIEW Comparison: None FINDINGS/IMPRESSION: : There is no evidence of acute fracture or dislocation. Soft tissue swelling along the lateral ankle
[2025-02-02] MEDS: HYDROcodone-ACET 5/325MG TAB PO ONE (09:23)
[2025-02-02] MEDS ORDERED: CEFD300C2 PO (10:04)
[2025-02-02] MEDS ORDERED: DICL50TA2 PO (10:04)
[2025-02-02 10:11] VITALS: BP 115/78; TEMP 98
[2025-02-02 10:25] VITALS: PULSE 84; RESP 18; O2SAT 99
== END 2025-02-02 10:27 | disposition home or self-care (01) ==
LOC: EDBD 07:05 → ER 07:05
DX: S93.422A Sprain of deltoid ligament of left ankle, initial encounter (principal); S41.112A Laceration without foreign body of left upper arm, initial encounter; S41.111A Laceration without foreign body of right upper arm, initial encounter; Z90.49 Acquired absence of other specified parts of digestive tract; Z79.899 Other long term (current) drug therapy; W10.9XXA Fall (on) (from) unspecified stairs and steps, initial encounter; Y93.89 Activity, other specified; Y92.89 Other specified places as the place of occurrence of the external cause; Y99.8 Other external cause status
CPT/HCPCS: 73610